=== PATIENT | female | born 1950 | race Caucasian/White ===

== ENCOUNTER 2024-09-19 10:53 | Inpatient (IN) | payer MEDICARE ==
[~2024-09-19] VITALS: Ht 160 cm; Wt 42.1 kg
[2024-09-19 12:11] LABS: Source, Urine Straight Cath
[2024-09-19 12:19] LABS: Appearance, Urine Clear (Clear); Bilirubin, Urine Neg (Neg); Blood, Urine 5+ (Neg); Color, Urine Yellow (P-Yellow); Glucose Qualitative, Urine Neg (Neg); Ketones, Urine Neg (Neg); Leukocyte Esterase, Urine Neg (Neg); Nitrite, Urine Neg (Neg); Protein, Urine 2+ (Neg); Urobilinogen, Urine NORM (Normal)
[2024-09-19 12:40] LABS: Hematocrit 43.3 % (33.0-51.0); Hemoglobin 14.5 g/dL (11.5-16.0); Mean Corpuscular HGB 29.5 pg (26.0-34.0); Mean Corpuscular HGB Conc 33.5 g/dL (31.5-36.5); Mean Corpuscular Volume 88 fL (80-100); Mean Platelet Volume 11.9 fL (9.1-12.4); NRBC ABSOLUTE 0.03 K/mm3 (0.00-0.02); NRBC Auto 0.2 /100 WBC (0.0-0.2); Platelet Count 205 K/mm3 (150-400); RDW Coefficient Variation 14.9 % (11.7-14.2); RDW Standard Deviation 48.7 fL (35.1-46.3); Red Blood Cell Count 4.91 M/mm3 (3.80-5.20); White Blood Cell Count 13.36 K/mm3 (4.00-11.30)
[2024-09-19 12:46] LABS: U Amphetamine Screen Not Detected; U Barbituate Screen Not Detected; U Benzodiazapine Screen Not Detected; U Buprenorphine Screen Not Detected; U Cannabinoids Screen Not Detected; U Cocaine Screen Not Detected; U Methadone Screen Not Detected; U Methamphetamine Screen Not Detected; U Opiates Screen Not Detected; U Oxycodone Screen Not Detected; U Phencyclidine Screen Not Detected
[2024-09-19 12:51] LABS: White Blood Cells, Urine 0-2 /hpf (0-5)
[2024-09-19 12:52] LABS: Bacteria Rare /hpf; Hyaline Casts 0-2 /lpf (0-2); Squamous Epithelial Cells Few /hpf (Few)
[2024-09-19] MEDS ORDERED: Azithromycin 500 MG in NS 250 ML IV ONE (13:10)
[2024-09-19] MEDS ORDERED: CefTRIAXone Sodium 1,000 MG in NS 100 ML IV ONE (13:10)
[2024-09-19 13:12] LABS: Alanine Aminotransfer (ALT/SGP 71 U/L (12-78); Albumin, Blood 2.6 g/dL (3.4-5.0); Albumin/Globulin Ratio 0.5 (0.8-1.8); Alk Phos 110 U/L (50-136); Anion Gap 16 mmol/L (3-11); Aspartate Aminotrans (AST/SGOT 178 U/L (12-37); Bilirubin, Total 1.4 mg/dL (0.1-1.0); Blood Urea Nitrogen 118 mg/dL (8-24); Bun/Creatinine Ratio 29.9 (12.0-20.0); CO2, Blood 26 mmol/L (21-32); Calcium, Blood 9.5 mg/dL (8.5-10.1); Chloride, Blood 110 mmol/L (98-108); Creatinine, Blood 3.94 mg/dL (0.40-1.00); Ethanol (Alcohol), Blood, Med <3 mg/dL; Globulin, Blood 4.9 g/dL (2.2-4.0); Glomerular Filtration Rate 11 (60-); Glucose, Blood 136 mg/dL (70-99); Potassium, Blood 2.9 mmol/L (3.5-5.5); Sodium, Blood 149 mmol/L (136-145); Total Protein, Blood 7.5 g/dL (6.4-8.2)
[2024-09-19 13:29] LABS: BAND PERCENT MAN 3 % (0-8); BASOPHILS PERCENT MAN 0 % (0-2); EOSINOPHILS PERCENT MAN 0 % (0-6); LYMPHOCYTES ABSOLUTE MAN 0.93 K/mm3 (0.84-5.20); LYMPHOCYTES PERCENT MAN 7 % (21-46); MONOCYTES PERCENT MAN 3 % (4-13); NEUTROPHILS ABSOLUTE MAN 12.02 K/mm3 (1.96-9.15); SEG NEUTROPHILS PERCENT MAN 87 % (41-73); TOTAL CELLS COUNTED 100
[2024-09-19 13:34] LABS: Influenza A, PCR NEGATIVE (NEGATIVE); Influenza B, PCR NEGATIVE (NEGATIVE); Resp Syncytial Virus, PCR NEGATIVE (NEGATIVE)
[2024-09-19 14:06] LABS: SARS-Cov-2 (COVID-19) PCR, MMC POSITIVE (NEGATIVE)
[2024-09-19] MEDS ORDERED: Dexamethasone Sod Phos 10 MG/ML 1ML VIAL IV ONE (14:20)
[2024-09-19] MEDS ORDERED: FLU VACC TS2024-25(6MOS UP)/PF 45 MCG/0.5 ML SYRINGE IM SCH (15:25)
[2024-09-19] MEDS ORDERED: Remdesivir (EUA) 200 MG in NS 250 ML IV ONE (15:30)
[2024-09-19 16:42] LABS: Base Excess Venous 2.9 mmol/L; Bicarbonate Venous 26.1 mmol/L (24.0-30.0); PCO2 Venous 40.5 mmHg (38-42); pH Blood Venous 7.43 (7.34-7.37)
[2024-09-19 18:41] VITALS: BP 140/103
[2024-09-19] MEDS ORDERED: NS 1,000 ML IV SCH (20:04)
[2024-09-19 21:00] VITALS: BP 137/55
[2024-09-19] MEDS ORDERED: Lactobacil 2-S.Thermo-Bifido 1 1 Cap PO SCH (21:00)
[2024-09-19] MEDS ORDERED: Heparin Sodium,Porcine 5,000 UNIT/0.5 ML SDV SC SCH (21:00)
[2024-09-19 21:11] LABS: Calcium, Blood 8.7 mg/dL (8.5-10.1); Creatinine, Blood 3.24 mg/dL (0.40-1.00); Potassium, Blood 2.7 mmol/L (3.5-5.5)
[2024-09-19] MEDS ORDERED: Dextrose 5% 1,000 ML IV SCH (21:40)
[2024-09-19] MEDS ORDERED: Potassium Chloride 20 MEQ TabCR PO ONE (22:00)
[2024-09-19] MEDS ORDERED: Potassium Chl 20MEQ/Water100ML 100 ML IV SCH (22:00)
--- NOTE | 2024-09-19 22:10 | NUR ---
ASSUMPTION OF CARE: PATIENT IS A/O X 0, DOES RESPOND TO BOTH PAINFUL AND VERBAL STIMULI, UNABLE TO CAPTURE BASELINE, RECORDS ARE POOR FOR HISTORY, PATIENT IS UNABLE TO PROVIDE HISTORY, ONLY ORAL RESPONSE IS WHEN ATTMEPTING ORAL CARE. MOUTH IS FULL OF DECAY AND BROKEN TEETH. POWERGLIDE PLACED DUE TO POOR VESSELS, AND NEED FOR EXTENSIVE ELECTROLYTE REPLACEMENT, BMP AT 2043 SHOWED WORSENING LABS. BESSEMER BOTTOM MAKER CALLED PROVIDER, NS SWITCHED TO D5 AT 200mL/HR AND POTASSIUM REPLACEMENT ORDERED. THIS RN CALLED PHARMACY TO KEEP IN TOUCH DUE TO RATE AND FREQUENCY NEEDED FOR CHEM CHECKS. NPO UNABLE TO FOLLOW DIRECTIONS. PATIENT ON 3L NONPRODUCTIVE HACKING COUGH. FROM 6L BLOOD PRESSURE MAP >65. WIDE PULSE PRESSURE SR IN THE 80'S. LUNGS WITH EXP WHEEZE AND COARSE BILATERALLY, NO ADVERT SIGNS OF FLUID OVERLOAD AT TIME OF ASSESSMENT. PATIENT RESTING Q2 TURNS PROVIDED. Q6 CHEM CHECKS, TELEMETRY IN PLACE, VOIDING THROUGH PURWICK. SLOWER BOWEL TONES, SKIN IS FRAGILE, SCALY, ECCYMOTIC.
[2024-09-19 23:30] VITALS: BP 125/67
--- NOTE | 2024-09-20 | NUR ---
CHANGES FROM ASSUMPTION: WOUND CARE PROVIDED TO FEET BILATERALLY WITH IODINE, HEEL PROTECTORS, 0000 CHEM CHECK 235, RESIDENT NOTIFIED, ALSO NOTIFIED OF TOPS OF FEET APPEARING TO HAVE STAGE 1 PRESSURE INJURIES, NO NEW ORDERS. CMP TO BE DRAW AT 2 AM. PATIENT REPOSITIONED Q2, BARRIER CREAM APPLIED TO BUTTOCKS, PLAN OF CARE CONTINUES.
[2024-09-20 02:12] LABS: Hemoglobin 11.7 g/dL (11.5-16.0); Mean Corpuscular HGB 29.7 pg (26.0-34.0); Mean Corpuscular HGB Conc 33.4 g/dL (31.5-36.5); Mean Corpuscular Volume 89 fL (80-100); Mean Platelet Volume 10.7 fL (9.1-12.4); Platelet Count 171 K/mm3 (150-400); RDW Coefficient Variation 14.9 % (11.7-14.2); RDW Standard Deviation 49.1 fL (35.1-46.3); Red Blood Cell Count 3.94 M/mm3 (3.80-5.20); White Blood Cell Count 10.69 K/mm3 (4.00-11.30)
[2024-09-20 02:34] LABS: BAND PERCENT MAN 13 % (0-8); BASOPHILS PERCENT MAN 0 % (0-2); EOSINOPHILS PERCENT MAN 0 % (0-6); LYMPHOCYTES ABSOLUTE MAN 0.21 K/mm3 (0.84-5.20); LYMPHOCYTES PERCENT MAN 2 % (21-46); METAMYELOCYTE PERCENT MAN 1 % (0-0); MONOCYTES ABSOLUTE MAN 0.32 K/mm3 (0.16-1.47); MONOCYTES PERCENT MAN 3 % (4-13); MYELOCYTE PERCENT MAN 1 % (0-0); NEUTROPHILS ABSOLUTE MAN 9.94 K/mm3 (1.96-9.15); SEG NEUTROPHILS PERCENT MAN 80 % (41-73); TOTAL CELLS COUNTED 100
[2024-09-20 02:36] LABS: Albumin/Globulin Ratio 0.5 (0.8-1.8); Bilirubin, Total 0.7 mg/dL (0.1-1.0); Bun/Creatinine Ratio 36.1 (12.0-20.0); Calcium, Blood 8.2 mg/dL (8.5-10.1); Creatinine, Blood 2.8 mg/dL (0.40-1.00); Globulin, Blood 3.8 g/dL (2.2-4.0); Potassium, Blood 2.9 mmol/L (3.5-5.5); Total Protein, Blood 5.8 g/dL (6.4-8.2)
[2024-09-20 02:46] VITALS: BP 119/60
--- NOTE | 2024-09-20 06:06 | NUR ---
NO SIGNIFICANT CHANGE FROM ASSUMPTION AND CHANGE NOTE, NO ACTIVE SIGNS OF CHEST PAIN PRESSURE OR SOB AT REST. Q2 REPOSITIONS, CBG'S OBTAINED, LABS IMPROVING, MINOR IMPROVING TO MENTATION, STILL VERY HARD TO PREFORM ORAL CARE ON GRID TRIMMER RECIEVED ORDER FOR DENTAL HYGIENE TO SEE, DUE TO SEVERE DECAY, BROKEN TEETH AND REDNESS. SCD'S HAVE BEEN IN PLACE FOR 8 HOURS, Q4 CARDIO PULMONARY LISTEN DID NOT HAVE SOUNDS OF FLUID OVERLOAD. PATIENT HAS BEEN STARTED ON HER 4TH BAG OF 20MEQ K+, AND 2ND L OF D5. POWERGLIDE INTACT CDI AND NOTED BLOOD RETURN. PATIENT STILL WILL PULL AT LINES AT TIMES, IS VERY WEAK. UNABLE TO ANSWER QUESTIONS OR FOLLOW COMMANDS, HAS BEEN NPO, ORAL CARE PRODIVDED Q4, PUREWICK WITH INCREASING URINE PRODUCTION. PLAN OF CARE CONTINUES.
[2024-09-20] MEDS ORDERED: Azithromycin 500 MG in NS 250 ML IV SCH (09:00)
[2024-09-20] MEDS ORDERED: Enoxaparin 30 MG/0.3 ML SYR SC SCH (09:00)
[2024-09-20] MEDS ORDERED: CefTRIAXone Sodium 1,000 MG in NS 100 ML IV SCH (09:00)
[2024-09-20 09:12] VITALS: BP 116/70
--- NOTE | 2024-09-20 09:14 | NUR ---
Bladder scan done : 33 cc . Unable to get post void residual due to pt's level of confusion, not responding to directions and no inteligible spoken words.
[2024-09-20 10:04] LABS: Bun/Creatinine Ratio 40.5 (12.0-20.0); Calcium, Blood 8.5 mg/dL (8.5-10.1); Creatinine, Blood 2.22 mg/dL (0.40-1.00); Potassium, Blood 3.6 mmol/L (3.5-5.5)
--- NOTE | 2024-09-20 10:41 | NUR ---
Pt opens her eyes, but there is little comprehensible/meaningful speech. She does resist care and did say, "Just leave it" when she was resisting hygiene care this morning. Does not follow directions nor answer questions. Dentition is extremely poor; other than a few molars, her teeth are brown nubs. Actively coughing but not expectorating the sputum. Oral care was done and able to clean out yellowis and whitish sputum from her palate and cheeks. She is on 4 l/min of O2 at this time, and spo2 is 97%, RR 23/min. LUngs are mostly clear, few scattered crackles and no wheezing noted anterior and posterior. Abdominal sounds: active "whoosing" sound heard continuously throughout the abdominal areas. Abdomen is soft, non-tender. Purewick in place, evacuating clear yellow urine. pt also passed a soft brown stool, incontinently this am. Skin in folds of buttocks is excoriated. Cleansed and placed white barrier cream on it. Eggcrate mattress placed on the bed to protect her skin. Repositioned and pt quickly fell asleep after personal care was completed.
[2024-09-20 13:50] VITALS: BP 137/109
[2024-09-20] MEDS ORDERED: Lactated Ringer's 1,000 ML IV SCH (14:00)
[2024-09-20] MEDS ORDERED: Dexamethasone Sod Phos 10 MG/ML 1ML VIAL IV SCH (15:30)
[2024-09-20] MEDS ORDERED: Remdesivir (EUA) 100 MG in NS 250 ML IV SCH (16:00)
--- NOTE | 2024-09-20 16:18 | NUR ---
Received Palliative Care order. Per notes, pt to have a CT tomorrow. Attempted to call son Raheem, left voicemail, request return phone call. Per bedside RN, Raheem requests pt be left as Full Code. Planning a meeting by phone with him for a more in depth discussion on code status, etc.
[2024-09-20 16:24] VITALS: BP 127/72
--- NOTE | 2024-09-20 19:21 | NUR ---
Report given to EVELIA German.
[2024-09-20 20:13] VITALS: BP 157/66
--- NOTE | 2024-09-20 20:30 | NUR ---
ASSUMED CARE PT ALERT, BUT CONFUSED. MAKES NONSENSICLE SOUNDS. PT INITIALLY RESTLESS, BUT IS RESTING QUIETLY AT THIS TIME. PT RESISTANT TO CARE, BUT CALMING VOICE AND MUSIC APPEARS TO BE EFFECTIVE. INTERMITTENT COUGH.
[2024-09-20 23:21] LABS: Bun/Creatinine Ratio 44.1 (12.0-20.0); Calcium, Blood 8.9 mg/dL (8.5-10.1); Creatinine, Blood 1.52 mg/dL (0.40-1.00); Potassium, Blood 3.6 mmol/L (3.5-5.5)
[2024-09-20] MEDS ORDERED: Dextrose 5% 1,000 ML IV SCH (23:50)
[2024-09-21] VITALS: BP 122/84
[2024-09-21 00:58] VITALS: BP 140/87
[2024-09-21 04:22] VITALS: BP 151/96
[2024-09-21 06:44] LABS: Albumin, Blood 2.1 g/dL (3.4-5.0); Albumin/Globulin Ratio 0.5 (0.8-1.8); Bilirubin, Total 0.6 mg/dL (0.1-1.0); Bun/Creatinine Ratio 47.2 (12.0-20.0); Creatinine, Blood 1.25 mg/dL (0.40-1.00); Potassium, Blood 3.1 mmol/L (3.5-5.5); Total Protein, Blood 6.1 g/dL (6.4-8.2)
[2024-09-21] MEDS ORDERED: Potassium Chl 20MEQ/Water100ML 100 ML IV SCH (06:50)
[2024-09-21 07:22] VITALS: BP 144/115
[2024-09-21 08:09] LABS: BASOPHILS ABSOLUTE AUTO 0.04 K/mm3 (0.00-0.23); BASOPHILS PERCENT AUTO 0 % (0-2); EOSINOPHILS ABSOLUTE AUTO 0.01 K/mm3 (0.00-0.68); EOSINOPHILS PERCENT AUTO 0 % (0-6); Hematocrit 37.3 % (33.0-51.0); Hemoglobin 12.3 g/dL (11.5-16.0); IMMATURE GRAN ABSOLUTE AUTO 0.19 K/mm3 (0.00-0.10); IMMATURE GRAN PERCENT AUTO 2 % (0-1); LYMPHOCYTES ABSOLUTE AUTO 0.44 K/mm3 (0.84-5.20); LYMPHOCYTES PERCENT AUTO 5 % (21-46); MONOCYTES ABSOLUTE AUTO 0.36 K/mm3 (0.16-1.47); MONOCYTES PERCENT AUTO 4 % (4-13); Mean Corpuscular HGB 29.5 pg (26.0-34.0); Mean Corpuscular Volume 89 fL (80-100); NEUTROPHILS ABSOLUTE AUTO 8.58 K/mm3 (1.96-9.15); NEUTROPHILS PERCENT AUTO 89 % (41-73); RDW Standard Deviation 49.5 fL (35.1-46.3); Red Blood Cell Count 4.17 M/mm3 (3.80-5.20); White Blood Cell Count 9.62 K/mm3 (4.00-11.30)
[2024-09-21 08:32] LABS: Mean Platelet Volume 12.6 fL (9.1-12.4); Platelet Count 116 K/mm3 (150-400)
[2024-09-21 11:13] VITALS: BP 115/84
--- NOTE | 2024-09-21 11:43 | NUR ---
Case Conference: Spoke to pt's son Raheem by phone. He tells me some of their family history, states the patient their father when he and his brothers were teenagers. He states the patient left them with their father in [place] and moved away to [place] with "some weird lianne" and never returned. He states their relationship has been quite strained ever since. I spoke very honestly with Raheem regarding pt's health issues, including prognostication, including recommendation of hospice. Raheem was receptive, stating he needs to consult with his brothers and pt's friend Mago regarding code status, and goals of care. I also placed a call to Mago to update her as well, and to expect a call from Raheem. Mago states she may be able to take pt to her home for hospice if this is what the pt's son's decide.
[2024-09-21] MEDS ORDERED: Furosemide 10 MG / ML 2ML Vial IV ONE (12:00)
--- NOTE | 2024-09-21 12:09 | NUR ---
Ongoing attempts to measure strict intake and output. However, the pt is basically non verbal and confused at baseline. She is incontinent of urine and stool. Purewick is in place to measure urine as accurately as possible; however, at times it is disloged by the pt's agitation, fidgeting in bed and the urine escapes the purewick and instead saturates the attends.
[2024-09-21] MEDS ORDERED: Sodium Chloride 0.45% 1,000 ML IV SCH (12:30)
[2024-09-21] MEDS ORDERED: LORazepam 0.5 MG Tab PO PRN (13:20)
--- NOTE | 2024-09-21 14:10 | NUR ---
APS VISIT ADULT PROTECTIVE SERVICES IN ROOM TO SEE PT.
--- NOTE | 2024-09-21 14:44 | NUR ---
PT is up in the recliner, very often standing and interfering with care. Incontinent of stool and urine, resisting efforts to give her hygiene care, pulling off her clothes. Continues to be non verbal except for occasional voicing "stop it" etc. during care. She is not directable, does not follow any requests.
[2024-09-21 15:36] VITALS: BP 141/21
[2024-09-21] MEDS ORDERED: LORazepam 2 MG/ML 1ML Injection IV PRN (16:15)
--- NOTE | 2024-09-21 16:26 | NUR ---
Pt has had multiple incontinent stools. Frequently attempting OOB, able to walk to bathroom with assistance, gait belt for safety. Last BM was liquid stool during Remdisivir infusion. Now back in bed, alert but quiet and still.
--- NOTE | 2024-09-21 17:51 | NUR ---
SHIFT SUMMARY PT ALERT TO SOMNOLENT, BUT UNABLE TO IDENTIFY SELF, TIME, PLACE, OR SITUATION. PT ALMOST ENTIRELY NONVERBAL WITH OCCASIONAL ONE WORDS SENTENCES. VITALS REMAINED STABLE THROUGHOUT THE SHIFT. PT DID BECOME AGITATED IN THE EARLY AFTERNOON AND WAS REFUSING TO STAY IN THE HOSPITAL BED OR THE CHAIR. PT WAS PLACED IN A NELA IN THE CHAIR AND EVENTUALLY BACK TO BED. A SITTER WAS ASSIGNED TO THIS PT. SPEECH EVAL THIS MORNING RESULTED IN THE PT BEING KEPT NPO. ADULT PROTECTIVE SERVICES HAD A BRIEF VISIT WITH PT, PT WAS UNABLE TO PARTICIPATE IN CONVERSATION. PALLIATIVE CARE IS ON BOARD.
--- NOTE | 2024-09-21 17:54 | NUR ---
Pt appears to be sleeping peacefully, clinical sitter is in the room. NSR 69 bpm by telemetry monitoring.
[2024-09-21 18:58] LABS: Albumin, Blood 2.2 g/dL (3.4-5.0); Albumin/Globulin Ratio 0.6 (0.8-1.8); Bilirubin, Total 0.7 mg/dL (0.1-1.0); Bun/Creatinine Ratio 44.9 (12.0-20.0); Calcium, Blood 9.1 mg/dL (8.5-10.1); Creatinine, Blood 1.07 mg/dL (0.40-1.00); Globulin, Blood 3.8 g/dL (2.2-4.0); Potassium, Blood 3.5 mmol/L (3.5-5.5)
--- NOTE | 2024-09-21 22:16 | NUR ---
THIS RN ASSUMED CARE OF THIS PT AT 1900. NEUROLOGICALLY PT HAS BEEN NON-VERBAL NOT RESPONDING TO QUESTIONS, PT IS FOLLOWING COMMANDS. CARDIAC PT IS NORMAL SINUS RHTHYM. PT SOUNDED COURSE IN UPPER LOBES, NO O2 REQUIRED OR DISCOMFORT NOTED. PT HAS BRIEF IN PLACE. PLAN OF CARE CONTINUED.
--- NOTE | 2024-09-22 02:50 | NUR ---
PT WILL BE TRANSFERING TO MEDICAL FLOOR 49, NO NEW EVENTS OVERNIGHT TO REPORT.
[2024-09-22 03:05] VITALS: BP 122/84
--- NOTE | 2024-09-22 03:25 | NUR ---
TRANSFER FROM U10 TO ROOM 349/SHIFT SUMMARY. PATIENT ARRIVED TO ROOM IN HOSPITAL BED-BEDS SWITCHED WITH PCU. PATIENT ARRIVED WITH ONE LARGE BLUE LINENS BAG AND A PERSONAL BELONGINGS BAG. PATIENT IS ALERT TO SELF ONLY. PATIENT INCONTINENT-ATTENDS IN PLACE AND CHANGED NEEDED. PATIENT HAD MULTIPLE BMS. PATIENT IS CONFUSED AND DIFFICULT TO REDIRECT-HX OF DEMENTIA. PATIENT IN BED WITH TV ON. PATIENT IS IMPULSIVE. BED IS LOCKED IN THE LOWEST POSITION WITH CALL LIGHT IN REACH. CARE IS ONGOING.
[2024-09-22 03:47] VITALS: BP 153/65
[2024-09-22 06:02] LABS: BASOPHILS ABSOLUTE AUTO 0.04 K/mm3 (0.00-0.23); BASOPHILS PERCENT AUTO 0 % (0-2); EOSINOPHILS PERCENT AUTO 0 % (0-6); Hematocrit 38.9 % (33.0-51.0); Hemoglobin 12.8 g/dL (11.5-16.0); IMMATURE GRAN PERCENT AUTO 2 % (0-1); LYMPHOCYTES ABSOLUTE AUTO 0.48 K/mm3 (0.84-5.20); LYMPHOCYTES PERCENT AUTO 5 % (21-46); MONOCYTES ABSOLUTE AUTO 0.46 K/mm3 (0.16-1.47); MONOCYTES PERCENT AUTO 5 % (4-13); Mean Corpuscular HGB 29.2 pg (26.0-34.0); Mean Corpuscular HGB Conc 32.9 g/dL (31.5-36.5); Mean Corpuscular Volume 89 fL (80-100); NEUTROPHILS ABSOLUTE AUTO 8.13 K/mm3 (1.96-9.15); NEUTROPHILS PERCENT AUTO 87 % (41-73); RDW Coefficient Variation 14.9 % (11.7-14.2); RDW Standard Deviation 49.1 fL (35.1-46.3); Red Blood Cell Count 4.39 M/mm3 (3.80-5.20); White Blood Cell Count 9.31 K/mm3 (4.00-11.30)
[2024-09-22 06:27] LABS: Albumin, Blood 2.2 g/dL (3.4-5.0); Albumin/Globulin Ratio 0.5 (0.8-1.8); Bilirubin, Total 0.8 mg/dL (0.1-1.0); Bun/Creatinine Ratio 41.8 (12.0-20.0); Creatinine, Blood 0.96 mg/dL (0.40-1.00); Globulin, Blood 4.2 g/dL (2.2-4.0); Potassium, Blood 3.7 mmol/L (3.5-5.5); Total Protein, Blood 6.4 g/dL (6.4-8.2)
[2024-09-22 07:48] VITALS: BP 142/96
[2024-09-22] MEDS ORDERED: NS 250 ML IV PRN (09:40)
--- NOTE | 2024-09-22 15:01 | NUR ---
Called son, left voicemail this morning. No response yet.
[2024-09-22 16:38] VITALS: BP 137/116
--- NOTE | 2024-09-22 17:21 | NUR ---
Left another phone message for pt's son Raheem this evening. I asked him to please call, as tomorrow will be day 3 with no food or fluids. Also spoke with pt's friend Mago who states she has decided she will take the patient into her home with hospice. However, this cannot be done without son's permission.
--- NOTE | 2024-09-22 18:05 | NUR ---
SHIFT SUMMARY PT A&O TO SELF. PT MUMMBLES AND IS CONFUSED. PT ADMITTED DUE TO ACUTE RESPIRATORY FAILURE AND COVID. PT ON ROOM AIR, AND BREATHING IS EVEN AND UNLABORED. PT NPO DUE TO FAILED SPEECH EVALUATION THIS AM. DURING SHIFT PT WAS SITTING IN CHAIR, WITH CHAIR ALARM ON. PT ABULATED UP AND DOWN CASTRO WITH WALKER AND GAIT BELT AND ASSISTANCE. PT RECEIVING ANTIBIOTICS AND FLUIDS. PT HAS POWERGLIDE IN R UPPER ARM. PT ON TELE. PT IS INC. OF URINE AND STOOL. PT HAS ATTENDS ON. PT CURRENTLY IN BED, CALL LIGHT IN REACH. AWAITING DISCHARGE PLAN. ACID REGENERATOR INVOLVED.
[2024-09-22 20:34] VITALS: BP 117/82
[2024-09-22] MEDS ORDERED: Sodium Chloride 0.45% 1,000 ML IV SCH (20:40)
[2024-09-23 03:56] VITALS: BP 159/81
--- NOTE | 2024-09-23 04:24 | NUR ---
SHIFT SUMMARY. PATIENT IS ALERT TO SELF ONLY. PATIENT RESTLESS AT BEGINNING OF SHIFT TRYING TO GET OOB UNSAFELY, DIFFICULT TO REDIRECT. PATIENT HAS TELE ON-PATIENT PULLING ON CORDS AND LINES T/O NIGHT. PATIENT HAD 1:1 SITTER FOR PART OF SHIFT. PATIENT IS CONFUSED AND RESISTIVE TO CARE AT TIMES. PATIENT PULLS AT CLOTHES AND ATTENDS. PATIENT INCONTINENT T/O NIGHT. BED EXIT ALARM ENGAGED FOR PATIENT SAFETY, FREQUENT CHECKS. BED IS LOCKED IN THE LOWEST POSITION WITH CALL LIGHT IN REACH. CARE IS ONGOING.
[2024-09-23 07:06] VITALS: BP 143/90
--- NOTE | 2024-09-23 10:27 | NUR ---
Received a return phone call from pt's son Raheem this morning. He states he's been busy with work, and has several meetings today. States he won't be able to talk further about this until this afternoon. He states he did receive the phone message regarding CG Mago's willingness to take pt into her home with hospice. He also acknowledged that pt has end stage dementia. He asked, "What's the difference between her not eating and drinking now versus her not eating or drinking on hospice?" I explained that hospice would focus on her comfort, which would include eating and drinking as she desires. He states he will again consult his brothers, and call back this afternoon to discuss this further. I reminded him that today is day 3 of NPO, with no plan in place. He states he recognizes this, but he is "a very busy person" and will call back this afternoon. He also states he will talk more with Mago as well. Updated CM, selenium plant operator and physician.
[2024-09-23] MEDS ORDERED: Dextrose 50% 50 ML Vial IV ONE (11:45)
[2024-09-23] MEDS ORDERED: TPN Consult Notification XX ONE (14:20)
[2024-09-23 14:31] VITALS: BP 141/92
[2024-09-23] MEDS ORDERED: DiphenhydrAMINE HCl 50 MG/ML 1ML Vial IV PRN (16:35)
[2024-09-23] MEDS ORDERED: Parenteral Electolytes 40 ML,Potassium Phosphate Dibasic 30 MM,Multivitamins 10 ML,ZINC... IV SCH (17:00)
--- NOTE | 2024-09-23 17:00 | NUR ---
RECIEVED A CALL FROM THE PATIENTS SON KALANI. HE REPORTED THAT HE HAD A CONVERSATION WITH HIS TWO BROTHERS AND THEY CAME TO THE AGREEMENT THAT [facility] WILL GO ON HOSPICE TO THE PATIENTS FRIEND ANGELA [facility]. I DISCUSSED CHANGING RUDDY CODE STATUS AND CHANGING HER TO COMFORT CARE AT THIS POINT IN TIME FOR BETTER SYMPTOM MANAGMENT AND ALLOWING FOR ORAL INTAKE IF SHE DESIRES. KALANI EXPRESSED THAT HE HAD NOT DISCUSSED THIS WITH HIS BROTHERS AND THAT HE WOULD NOT WANT TO MAKE THAT CHANGE WITHOUT DISCUSSING IT WITH THEM FIRST. I ENCOURAGED HIM TO HAVE THAT DISCUSSION SO THAT WE WOULD BE ABLE TO AVOID UNNECESSARY SUFFERING IF THE PATIENT WERE TO HAVE AN EVENT THAT WOULD REQUIRE CPR AND INTUBATION. HE EXPRESSED THAT HE WOULD LIKE TO LEAVE HER A FULL CODE AND CHANGE IT ONCE SHE GOES ON HOSPICE SERVICES. I CALLED [facility] TO UPDATE HER. HOSPICE WILL BE ABLE TO DO AN ADMISSION TOMORROW. RELAYED INFORMATION TO CLINICAL DATA SPECIALIST, AND COLLEGE SPORTS COACH. PC WILL CONTINUE TO PROVIDE SUPPORT
--- NOTE | 2024-09-23 18:34 | NUR ---
SHIFT SUMMARY PT IS A&0 TO SELF. PT ADMITTED DUE TO ACUTE RESPIRATORY FAILURE DUE TO COVID. PT REPOSITIONED Q2 HOURS. PT REMAINS NPO DUE TO FAILING SPEECH EVAL. TPN STARTED TODAY. PT ON ROOM AIR. RESPIRATIONS ARE EVEN AND UNLABORED. PT SATS ARE 93%. BLOOD SUGAR CHECKS Q6. PT HAD BED BATH TODAY. GAVE PT BENADRYL DUE TO PT ITCHING ALL DAY. PT RECIEVING ANTIBIOTICS. PT DOES NOT SHOW SIGNS OF PAIN. PT HAS SOME AGITATION. PT IS IMPULSIVE AND AT TIMES AND MOVES ARMS AND LEGS AROUND, DOES NOT FOLLOW COMMANDS WELL. PT DID GO ON WALK DOWN HALLWAY TODAY WITH TWO PERSON ASSIST AND GAIT BELT. PT HAS CALL LIGHT IN REACH. VSS. BED ALARM ON. WAITING FOR PLAN FOR DISCHARGE.
[2024-09-23 20:47] VITALS: BP 128/106
[2024-09-24 04:22] VITALS: BP 104/71
[2024-09-24 06:19] LABS: Magnesium, Blood 2.1 mg/dL (1.6-2.4); Phosphorus, Blood 1.9 mg/dL (2.5-4.9); Triglycerides 147 mg/dL (30-160)
--- NOTE | 2024-09-24 06:46 | NUR ---
SHIFT SUMMARY. PATIENT IS ALERT TO SELF. PATIENT MORE VERBAL THIS SHIFT. PATIENT VERY ACTIVE THIS SHIFT, ATTEMPTING OOB UNSAFELY-1:1 SITTER. PATIENT ATTEMPTING TO HIT AND KICK AT STAFF. PATIENT NOT ABLE TO BE REDIRECTED. BED IS LOCKED IN THE LOWEST POSITION WITH CALL LIGHT IN REACH.
[2024-09-24 07:44] VITALS: BP 134/81
--- NOTE | 2024-09-24 10:39 | NUR ---
SHIFT/DISCHARGE NOTE: PATIENT NONVERBAL, MOANS, ABLE TO MADE AN EYE TO EYE CONTACT, BUT NOT ABLE TO FOLLOW SIMPLE COMMAND. PATIENT NPO, ON CONTINUES PPN, TOLERATING WELL. PATIENT RECEIVED IV ABX/SCHEDULED MEDS PER EMAR. PATIENT INCONTINENT OF BLADDER, ATTENDS PLACED AND CHANGED PRN. PATIENT REPOSITIONED AND ORAL CARE DONE. PIV TO R WRIST AND POWERGLIDE DC'D. PATIENT DISCHARGE HOME c HOSPICE CARE. DISCHARGE INSTRUCTIONS PACKET GIVEN TO PATIENT. PATIENT LEFT THE ROOM AT 1004 VIA WHEELCHAIR THROUGH [facility] AND ALL PERSONAL BELONGINGS WERE SENT HOME c THE PATIENT.
== END 2024-09-24 10:04 | disposition hospice, home (50) | DRG 871 ==
LOC: ER 10:53 → PCU 15:23 → MEDS 15:23 → ERHOLD 15:23 → PCU 18:12 → MEDS 09-22 03:35 → ENPENDDIS 09-24 08:04 → MEDS 09-24 10:04
PROVIDERS: Family Medicine; Hospitalist; Student in an Organized Health Care Education/Training Program; ADMIT Family Medicine
PROC: 3E0333Z Introduction of Anti-inflammatory into Peripheral Vein, Percutaneous Approach (ICD-10-PCS; principal; 2024-09-19)
PROC: XW033E5 Introduction of Remdesivir Anti-infective into Peripheral Vein, Percutaneous Approach, New Technology Group 5 (ICD-10-PCS; 2024-09-19)
PROC: 3E03329 Introduction of Other Anti-infective into Peripheral Vein, Percutaneous Approach (ICD-10-PCS; 2024-09-19)
PROC: 3E0336Z Introduction of Nutritional Substance into Peripheral Vein, Percutaneous Approach (ICD-10-PCS; 2024-09-19)
DX: A41.89 Other specified sepsis (principal); E43 Unspecified severe protein-calorie malnutrition; J96.01 Acute respiratory failure with hypoxia; U07.1 COVID-19; N18.6 End stage renal disease; J18.9 Pneumonia, unspecified organism; G93.41 Metabolic encephalopathy; N17.9 Acute kidney failure, unspecified; E87.0 Hyperosmolality and hypernatremia; E87.20 Acidosis, unspecified; R64 Cachexia; F03.911 Unspecified dementia, unspecified severity, with agitation; G93.49 Other encephalopathy; Z68.1 Body mass index [BMI] 19.9 or less, adult; R62.7 Adult failure to thrive; R65.20 Severe sepsis without septic shock; E87.6 Hypokalemia; L89.891 Pressure ulcer of other site, stage 1; E86.0 Dehydration
CPT/HCPCS: 0241U; 36415; 71045; 80048; 80053; 80320; 81001; 82803; 82947; 83605; 83735; 84100; 84145; 84478; 85025; 87040; 92526; 92610; 93005; 93010; 94760; 94762; 96365; 96367; 96375; 99285-25; A9270; C1751; J0248; J0456; J0696; J1100; J1200; J1644; J1940; J3411; J3480; J7030; J7050; J7070; J7120; J7799